=== PATIENT | female | born 1990 | race Two or more races ===

== ENCOUNTER 2017-05-14 16:35 | Emergency (ER) | payer OTHER ==
[~2017-05-14] VITALS: Ht 180.3 cm; Wt 140.0 kg
[2017-05-14] MEDS ORDERED: LIDOCAINE 1%, 10ML ONE (17:15)
[2017-05-14] MEDS ORDERED: SULFAMETH./TRIMETHOPRIM DS 800MG/160MG TABLET ONE (19:24)
[2017-05-14] MEDS ORDERED: CEPHALEXIN 500 MG CAPSULE ONE (19:25)
[2017-05-14 19:27] VITALS: BP 154/94
[2017-05-14] MEDS ORDERED: SULFAMETH./TRIMETHOPRIM DS 800MG/160MG TABLET PO ONE (19:30)
[2017-05-14] MEDS ORDERED: CEPHALEXIN 500 MG CAPSULE PO ONE (19:30)
== END 2017-05-14 19:58 | disposition home or self-care (01) ==
LOC: ED 19:52
DX: M54.5 Low back pain (principal); L02.31 Cutaneous abscess of buttock
CPT/HCPCS: 76857; 99284